=== PATIENT | female | born 1960 | race Caucasian/White ===

== ENCOUNTER → 2023-01-19 10:50 | Outpatient (CLI) | payer MEDICARE, MEDICAID, SELFPAY ==
--- NOTE | 2023-01-19 | DI.MRI.S_ITS ---
PROCEDURE: MR CERVICAL SPINE WO CON INDICATIONS: Cervicalgia TECHNIQUE: Noncontrast sagittal T1 spin echo and T2 fast spin echo, sagittal STIR, foraminal oblique sagittal T2 fast spin echo, and axial gradient echo or T2 fast spin echo through the cervical spine. COMPARISON: [facility] Outside Film, MR, MR CERVICAL SPINE WITHOUT CONTRAST, 11/18/2019, 17:47. FINDINGS: Image quality: Excellent. Alignment and Curvature: Mild increase in degenerative anterolisthesis of C4 on C5, measuring 3 mm. Unchanged trace retrolisthesis of C6 on C7. Bone Marrow: Marrow demonstrates normal overall signal. Spinal Cord: Visualized spinal cord has normal size and signal. No cerebellar tonsillar herniation. Paraspinous Soft Tissues: No paravertebral masses. Prevertebral soft tissues are normal in thickness. C2-C3: Mild right facet arthropathy. No canal stenosis or foraminal stenosis. C3-C4: Very minimal central posterior disc protrusion superimposed on mild disc bulge. Bilateral uncovertebral joint hypertrophy. Left facet hypertrophy. Mild canal stenosis. AP diameter of the canal measures 9.5 mm. Moderate right foraminal narrowing and moderate to severe left foraminal narrowing. Left foraminal C4 nerve root impingement. C4-C5: Interval increase in anterolisthesis of C4 on C5. Interval increase in posterior disc bulge. AP diameter of the canal is 9.0 mm. Bilateral uncovertebral joint hypertrophy. Exuberant left facet hypertrophy. Moderate to severe right foraminal narrowing and severe left foraminal narrowing with bilateral foraminal C5 nerve root impingement, right greater than left. C5-C6: Again noted is severe disc height loss and anterior osteophytosis and diffuse posterior disc osteophyte complex, eccentric to the left with impingement on the ventral cord. AP diameter of the canal is 7.4 mm. There is severe narrowing of the left side of the canal. Bilateral uncovertebral joint hypertrophy and facet arthropathy. Severe bilateral foraminal narrowing with bilateral foraminal C6 nerve root impingement. C6-C7: Again noted is chronic disc height loss and anterior osteophytosis and diffuse posterior disc plus osteophyte and uncovertebral joint hypertrophy. There is flattening of the ventral cord. AP diameter of the central canal is 8.4 mm. Bilateral foraminal disc protrusions, as before, contribute to severe foraminal narrowing and bilateral foraminal C7 nerve root impingement. C7-T1: No canal stenosis or foraminal stenosis. IMPRESSION: 1. Diffuse underlying spondylitic change including multilevel uncovertebral joint hypertrophy and multilevel facet arthropathy. 2. Canal stenosis is mild at C3-C4, [id number] at C4-C5, severe at C5-C6, and moderate at C6-C7. 3. Significant multilevel foraminal narrowing from C3-C4 through C6-C7, with multilevel foraminal nerve root impingement as described above. Dictated by: Christiano Laboy M.D. on 01/26/2023 at 12:55 Approved by: Christiano Laboy M.D. on 01/26/2023 at 13:14
== END ==
PROVIDERS: PCP Physician Assistant; Referring Provider Physical Medicine & Rehabilitation; Visit Provider Physical Medicine & Rehabilitation
DX: M54.2 Cervicalgia (principal); M47.812 Spondylosis without myelopathy or radiculopathy, cervical region; M48.02 Spinal stenosis, cervical region
CPT/HCPCS: 72141